=== PATIENT | female | born 1965 | race Caucasian/White ===

== ENCOUNTER → 2018-08-16 08:03 | Outpatient (CLI) | payer BC, SELFPAY ==
--- NOTE | 2018-08-16 08:09 | BI_ITS ---
MAMMOGRAPHY - BILATERAL SCREENING REASON FOR EXAM: Female, 53 years old. Routine annual screening examination. PERTINENT HISTORY: Aunt with breast cancer. TECHNIQUE: Digital bilateral breast caden (3D mammographic acquisition) in the CC and MLO projections. 2-D mediolateral oblique (MLO) and craniocaudad (CC) views of both breasts were obtained. CAD: Full Field Digital Mammography with Computer Added Detection was performed. COMPARISON: Comparison is made with prior study dated June 11, 2017 and November 01, 2015. FINDINGS: Breast Composition: The breasts are heterogeneously dense, which may obscure small masses. There are no dominant masses or suspicious calcifications. The previously seen 6 mm well-defined nodule in the retroareolar region of the left breast is not seen at this time. No other significant abnormalities are identified. BI/SCREENING MAMM (CAD), BILAT IMPRESSION: Stable bilateral screening mammogram. Yearly follow-up mammogram recommended. (A) ASSESSMENT CATEGORY: BIRADS Category 2: Benign. A letter regarding these results will be sent to the patient by the facility within 30 days. Approximately 10% of breast cancers are not detected by mammography. A normal mammogram should not delay biopsy of a clinically suspicious abnormality. [id number] Electronically Signed: Severo Pulliam MD at 9:20 EST Tel [phone], Service support ,
== END ==
PROVIDERS: Family Provider Family Medicine; PCP Family Medicine
DX: Z12.31 Encounter for screening mammogram for malignant neoplasm of breast (principal)
CPT/HCPCS: 77063; 77067

== ENCOUNTER → 2019-06-06 11:35 | Outpatient (CLI) | payer BC, SELFPAY ==
[2019-06-06 15:25] LABS: Cholesterol 188 mg/dL (200); High Density Lipoprotein 66 mg/dL; Triglycerides 70 mg/dL; Very Low Density Lipoprotein 14 mg/dL (5-40)
[2019-06-06 15:34] LABS: Vitamin D,25 Hydroxy 25.5 ng/mL (29.95-100.01)
== END ==
PROVIDERS: Family Provider Family Medicine; PCP Family Medicine; Referring Provider Family Medicine; Visit Provider Family Medicine
DX: E78.5 Hyperlipidemia, unspecified (principal); E55.9 Vitamin D deficiency, unspecified
CPT/HCPCS: 36415; 80061; 82306

== ENCOUNTER → 2019-06-20 15:49 | Outpatient (CLI) | payer BC, SELFPAY ==
[2019-06-20 17:35] LABS: Hematocrit 33.5 % (37-47); Hemoglobin 10.7 g/dL (12.0-15.0); Mean Corp Hgb Conc 31.9 g/dL (32-36); Mean Corpuscular Hgb 26.5 pg (27.0-32.0); Mean Corpuscular Volume 82.9 fL (81-99); Mean Platelet Vol. 10.1 fl (6.2-12.0); Platelet Count 285 K/mm3 (150-450); RBC Distribution Width CV 12.8 % (11.6-14.6); RBC Distribution Width SD 39.1 fl (35.1-43.9); Red Blood Count 4.04 M/mm3 (4.2-5.4); White Blood Count 5.8 K/mm3 (4.4-11.0)
[2019-06-20 18:03] LABS: ALB/GLOB Ratio 1.1 RATIO (0.9-2.4); AST(SGOT) 19 U/L (15-37); Alanine Aminotransfer ALT/SGPT 26 U/L (13-56); Albumin, Serum 3.8 g/dL (3.2-5.0); Alkaline Phosphatase 76 U/L (45-117); Anion Gap 5 (5-15); BUN 11 mg/dL (7-18); BUN/Creat Ratio 18.1 RATIO (10-20); Calcium,Total 8.5 mg/dL (8.5-10.1); Chloride 102 mmol/L (98-107); Creatinine, Serum 0.61 mg/dL (0.55-1.02); EST Glomerular Filtration Rate 109 mL/min (>60); Est Glom Filt Rate - Afr Amer 132 mL/min (>60); Globulin 3.4 g/dL (2.2-4.2); Glucose 80 mg/dL (74-106); Magnesium 1.9 mg/dL (1.6-2.6); Potassium 3.8 mmol/L (3.5-5.1); Protein, Total 7.2 g/dL (6.4-8.2); Sodium Level 134 mmol/L (136-145); Thyroid Stim Hormone (TSH) 1.53 uIU/mL (0.358-3.74)
== END ==
PROVIDERS: Family Provider Family Medicine; PCP Family Medicine; Visit Provider Family Medicine
DX: R53.83 Other fatigue (principal); Z13.29 Encounter for screening for other suspected endocrine disorder
CPT/HCPCS: 36415; 80053; 83735; 84443; 85027

== ENCOUNTER → 2019-09-12 16:23 | Outpatient (CLI) | payer BC, SELFPAY ==
--- NOTE | 2019-09-12 16:26 | BI_ITS ---
MAMMOGRAPHY - BILATERAL SCREENING REASON FOR EXAM: Female, 54 years old. Routine annual screening examination. PERTINENT HISTORY: Non-contributory. TECHNIQUE: Digital bilateral breast alia (3D mammographic acquisition) in the CC and MLO projections. 2-D mediolateral oblique (MLO) and craniocaudad (CC) views of both breasts were obtained. CAD: Full Field Digital Mammography with Computer Added Detection was performed. COMPARISON: Comparison is made with prior examination dated August 16, 2018 and June 11, 2017. FINDINGS: Breast Composition: The breasts are heterogeneously dense, which may obscure small masses. There are no dominant masses or suspicious calcifications. No other significant abnormalities are identified. There has been no significant change since the prior study. BI/SCREEN MAMM (CAD) W/ALIA BILAT IMPRESSION: Stable bilateral screening mammogram. Yearly follow-up mammogram recommended. (A) ASSESSMENT CATEGORY: BIRADS Category 1: Negative. A letter regarding these results will be sent to the patient by the facility within 30 days. Approximately 10% of breast cancers are not detected by mammography. A normal mammogram should not delay biopsy of a clinically suspicious abnormality. [id number] Electronically Signed: Severo Pulliam, at 8:37 EST , Service support ,
== END ==
PROVIDERS: Family Provider Family Medicine; PCP Family Medicine; Referring Provider Family Medicine; Visit Provider Family Medicine
DX: Z12.31 Encounter for screening mammogram for malignant neoplasm of breast (principal)
CPT/HCPCS: 77063; 77067

== ENCOUNTER → 2019-10-03 15:46 | Outpatient (CLI) | payer BC, SELFPAY ==
[2019-10-03 17:39] LABS: Hematocrit 33.8 % (37-47); Hemoglobin 10.8 g/dL (12.0-15.0); Mean Corpuscular Hgb 26.2 pg (27.0-32.0); Mean Platelet Vol. 9.8 fl (6.2-12.0); Platelet Count 271 K/mm3 (150-450); RBC Distribution Width CV 12.9 % (11.6-14.6); RBC Distribution Width SD 38.6 fl (35.1-43.9); Red Blood Count 4.12 M/mm3 (4.2-5.4); Reticulocyte Count 0.73 % (0.5-1.5); White Blood Count 6.5 K/mm3 (4.4-11.0)
[2019-10-03 17:56] LABS: Ferritin 49 ng/mL (8-252); Iron 95 ug/dL (50-170); Iron Binding Capacity,Total 321 ug/dL (250-450)
[2019-10-03 18:01] LABS: Vitamin B12 > 2000 pg/mL (211-911); Vitamin D,25 Hydroxy 36.3 ng/mL (29.95-100.01)
== END ==
PROVIDERS: PCP Family Medicine; Referring Provider Family Medicine; Visit Provider Family Medicine
DX: D64.9 Anemia, unspecified (principal); E55.9 Vitamin D deficiency, unspecified
CPT/HCPCS: 36415; 82306; 82607; 82728; 83540; 83550; 85027; 85045

== ENCOUNTER → 2020-09-20 17:20 | Outpatient (CLI) | payer BC, SELFPAY ==
--- NOTE | 2020-09-20 17:02 | BI_ITS ---
MAMMOGRAPHY - BILATERAL SCREENING REASON FOR EXAM: Female, 55 years old. Routine annual screening examination. PERTINENT HISTORY: Aunt with breast cancer. TECHNIQUE: Digital bilateral breast alia (3D mammographic acquisition) in the CC and MLO projections. 2-D mediolateral oblique (MLO) and craniocaudad (CC) views of both breasts were obtained. CAD: Full Field Digital Mammography with Computer Added Detection was performed. COMPARISON: Comparison is made with prior study dated 09/12/2019 and 08/16/2018 FINDINGS: Breast Composition: The breasts are heterogeneously dense, which may obscure small masses. There are no dominant masses or suspicious calcifications. No other significant abnormalities are identified. There has been no significant change since the prior study. BI/SCRN MAMM (CAD)W/ALIA BILAT IMPRESSION: Stable bilateral screening mammogram. Yearly follow-up mammogram recommended. (A) ASSESSMENT CATEGORY: BIRADS Category 1: Negative. A letter regarding these results will be sent to the patient by the facility within 30 days. Approximately 10% of breast cancers are not detected by mammography. A normal mammogram should not delay biopsy of a clinically suspicious abnormality. [id number] Electronically Signed: Severo Pulliam, at 8:31 EST , Service support ,
== END ==
PROVIDERS: PCP Family Medicine; Referring Provider Family Medicine; Visit Provider Family Medicine
DX: Z12.31 Encounter for screening mammogram for malignant neoplasm of breast (principal)
CPT/HCPCS: 77063; 77067

== ENCOUNTER → 2020-09-28 06:06 | Outpatient (CLI) | payer BC, SELFPAY ==
[2020-09-28 07:40] LABS: Erythrocyte Sedimentation Rate 6 mm/hr (0-30)
[2020-09-28 07:42] LABS: Absolute Lymphocyte Count 3.28 X10^3/uL (0.83-4.51); Absolute Neutrophil Count 1.9 X10^3/uL (2.0-7.7); Basophil# 0.06 X10^3/uL; Eosinophil# 0.23 X10^3/uL; Eosinophils% 3.9 % (0-5); Hematocrit 39.4 % (37-47); Hemoglobin 12.3 g/dL (12.0-15.0); Lymphocyte # 3.28 X10^3/ul (4.0); Lymphocyte % 55.6 % (19-41); Mean Corp Hgb Conc 31.2 g/dL (32-36); Mean Corpuscular Volume 83.3 fL (81-99); Mean Platelet Vol. 10.1 fl (6.2-12.0); Monocyte# 0.47 X10^3/uL; NRBC Flagged by Analyzer 0 % (0-5); Neutrophil # 1.86 X10^3/uL (2.7-7.7); Neutrophil % 31.5 % (47-70); Platelet Count 346 K/mm3 (150-450); RBC Distribution Width CV 13.2 % (11.6-14.6); RBC Distribution Width SD 40.1 fl (35.1-43.9); Red Blood Count 4.73 M/mm3 (4.2-5.4); White Blood Count 5.9 K/mm3 (4.4-11.0)
[2020-09-28 08:03] LABS: AST(SGOT) 20 U/L (15-37); Alanine Aminotransfer ALT/SGPT 30 U/L (13-56); Alkaline Phosphatase 84 U/L (45-117); Anion Gap 3 (5-15); BUN 18 mg/dL (7-18); BUN/Creat Ratio 25.9 RATIO (10-20); Calcium,Total 8.8 mg/dL (8.5-10.1); Chloride 110 mmol/L (98-107); Cholesterol 214 mg/dL (200); EST Glomerular Filtration Rate 93 mL/min (>60); Est Glom Filt Rate - Afr Amer 113 mL/min (>60); Ferritin 32 ng/mL (8-252); Globulin 3.9 g/dL (2.2-4.2); Glucose 91 mg/dL (74-106); High Density Lipoprotein 82 mg/dL; Potassium 3.7 mmol/L (3.5-5.1); Protein, Total 7.9 g/dL (6.4-8.2); Sodium Level 141 mmol/L (136-145); T4 Free Direct 0.76 ng/dL (0.76-1.46); Thyroid Stim Hormone (TSH) 1.39 uIU/mL (0.358-3.74); Triglycerides 68 mg/dL; Very Low Density Lipoprotein 14 mg/dL (5-40)
[2020-09-28 08:11] LABS: Vitamin B12 746 pg/mL (211-911); Vitamin D,25 Hydroxy 26.6 ng/mL
== END ==
PROVIDERS: PCP Family Medicine; Referring Provider Family Medicine; Visit Provider Family Medicine
DX: R53.83 Other fatigue (principal); E55.9 Vitamin D deficiency, unspecified; E78.5 Hyperlipidemia, unspecified; D64.9 Anemia, unspecified; D50.9 Iron deficiency anemia, unspecified; E53.8 Deficiency of other specified B group vitamins
CPT/HCPCS: 36415; 80053; 80061; 82306; 82533; 82607; 82728; 84439; 84443; 85025; 85652

== ENCOUNTER 2021-10-14 14:53 | Outpatient (CLI) | payer BC, SELFPAY ==
--- NOTE | 2021-10-14 14:55 | BI_ITS ---
MAMMOGRAPHY - BILATERAL SCREENING REASON FOR EXAM: Female, 56 years old. Routine annual screening examination. PERTINENT HISTORY: Aunt with breast cancer. TECHNIQUE: Digital bilateral breast alia (3D mammographic acquisition) in the CC and MLO projections. 2-D mediolateral oblique (MLO) and craniocaudad (CC) views of both breasts were obtained. CAD: Full Field Digital Mammography with Computer Added Detection was performed. COMPARISON: Comparison is made with prior study dated 09/20/2020 and 09/12/2019. FINDINGS: Breast Composition: The breasts are heterogeneously dense, which may obscure small masses. There are no dominant masses or suspicious calcifications. No other significant abnormalities are identified. There has been no significant change since the prior study. BI/SCRN MAMM (CAD)W/ALIA BILAT IMPRESSION: Stable bilateral screening mammogram. Yearly follow-up mammogram recommended. (A) ASSESSMENT CATEGORY: BIRADS Category 1: Negative. A letter regarding these results will be sent to the patient by the facility within 30 days. Approximately 10% of breast cancers are not detected by mammography. A normal mammogram should not delay biopsy of a clinically suspicious abnormality. [id number] Electronically Signed: Severo Pulliam MD at 15:37 EST ,
== END 2021-10-14 23:59 | disposition home or self-care (01) ==
LOC: OPBI 14:54
PROVIDERS: PCP Family Medicine; Referring Provider Family Medicine; Visit Provider Family Medicine
DX: Z12.31 Encounter for screening mammogram for malignant neoplasm of breast (principal)
CPT/HCPCS: 77063; 77067

== ENCOUNTER 2021-10-18 05:42 | Outpatient (CLI) | payer BC, SELFPAY ==
[2021-10-18 07:37] LABS: Hemoglobin 12.5 g/dL (12.0-15.0); Mean Corp Hgb Conc 32.1 g/dL (32-36); Mean Corpuscular Hgb 26.3 pg (27.0-32.0); Mean Corpuscular Volume 81.9 fL (81-99); Mean Platelet Vol. 9.5 fl (6.2-12.0); Platelet Count 281 K/mm3 (150-450); RBC Distribution Width CV 13.1 % (11.6-14.6); RBC Distribution Width SD 39.2 fl (35.1-43.9); Red Blood Count 4.76 M/mm3 (4.2-5.4); White Blood Count 5.9 K/mm3 (4.4-11.0)
[2021-10-18 08:15] LABS: ALB/GLOB Ratio 0.9 RATIO (0.9-2.4); AST(SGOT) 46 U/L (15-37); Alanine Aminotransfer ALT/SGPT 87 U/L (13-56); Albumin, Serum 3.6 g/dL (3.2-5.0); Alkaline Phosphatase 79 U/L (45-117); Anion Gap 4 (5-15); BUN 18 mg/dL (7-18); BUN/Creat Ratio 24.3 RATIO (10-20); Calcium,Total 8.7 mg/dL (8.5-10.1); Chloride 107 mmol/L (98-107); Cholesterol 240 mg/dL (200); Creatinine, Serum 0.74 mg/dL (0.55-1.02); EST Glomerular Filtration Rate 87 mL/min (>60); Est Glom Filt Rate - Afr Amer 105 mL/min (>60); Ferritin 118 ng/mL (8-252); Globulin 3.9 g/dL (2.2-4.2); Glucose 104 mg/dL (74-106); High Density Lipoprotein 72 mg/dL; Iron 70 ug/dL (50-170); Potassium 3.7 mmol/L (3.5-5.1); Protein, Total 7.5 g/dL (6.4-8.2); Sodium Level 140 mmol/L (136-145); Thyroid Stim Hormone (TSH) 1.44 uIU/mL (0.358-3.74); Triglycerides 56 mg/dL; Very Low Density Lipoprotein 11 mg/dL (5-40)
[2021-10-19 09:52] LABS: MG Sendout 2.2 mg/dL (1.6-2.3)
[2021-10-20 08:37] LABS: V-Zoster IgG (Immunity) 1297 index (Immune >165)
== END 2021-10-18 23:59 | disposition home or self-care (01) ==
LOC: LAB 05:44
PROVIDERS: PCP Family Medicine; Referring Provider Family Medicine; Visit Provider Family Medicine
DX: Z00.00 Encounter for general adult medical examination without abnormal findings (principal); D64.9 Anemia, unspecified; Z20.822 Contact with and (suspected) exposure to COVID-19
CPT/HCPCS: 36415; 80053; 80061; 82728; 83540; 83735; 84443; 85027; 86769; 86787

== ENCOUNTER → 2022-02-12 | Outpatient (CLI) | payer BC, SELFPAY ==
[2022-02-18 15:43] LABS: HPV HC, High Risk Negative
== END | disposition home or self-care (01) ==
LOC: LABSPEC 12:05
PROVIDERS: PCP Family Medicine; Referring Provider Nurse Practitioner Family; Visit Provider Nurse Practitioner Family
DX: Z12.4 Encounter for screening for malignant neoplasm of cervix (principal)
CPT/HCPCS: 87624; 88175; G0145

== ENCOUNTER → 2022-07-09 | Outpatient (CLI) | payer BC, SELFPAY ==
[2022-07-09 18:00] LABS: Erythrocyte Sedimentation Rate 13 mm/hr (0-30)
[2022-07-09 18:03] LABS: Absolute Lymphocyte Count 3.21 X10^3/uL (0.83-4.51); Absolute Neutrophil Count 1.8 X10^3/uL (2.0-7.7); Basophil# 0.04 X10^3/uL; Basophil% 0.7 % (0-1); Eosinophil# 0.23 X10^3/uL; Eosinophils% 4.1 % (0-5); Hematocrit 37.4 % (37-47); Hemoglobin 12.3 g/dL (12.0-15.0); Lymphocyte # 3.21 X10^3/ul (0.83-4.51); Lymphocyte % 56.7 % (19-41); Mean Corp Hgb Conc 32.9 g/dL (32-36); Mean Corpuscular Hgb 27.2 pg (27.0-32.0); Mean Corpuscular Volume 82.6 fL (81-99); Mean Platelet Vol. 9.8 fl (6.2-12.0); Monocyte# 0.34 X10^3/uL; NRBC Flagged by Analyzer 0 % (0-5); Neutrophil # 1.83 X10^3/uL (2.7-7.7); Neutrophil % 32.3 % (47-70); Platelet Count 309 K/mm3 (150-450); RBC Distribution Width CV 13.9 % (11.6-14.6); Red Blood Count 4.53 M/mm3 (4.2-5.4); White Blood Count 5.7 K/mm3 (4.4-11.0)
[2022-07-09 18:55] LABS: Vitamin D,25 Hydroxy 54.5 ng/mL
[2022-07-09 19:07] LABS: ALB/GLOB Ratio 1.1 RATIO (0.9-2.4); AST(SGOT) 26 U/L (15-37); Alanine Aminotransfer ALT/SGPT 45 U/L (13-56); Alkaline Phosphatase 92 U/L (45-117); Anion Gap 6 (5-15); BUN 12 mg/dL (7-18); BUN/Creat Ratio 14.9 RATIO (10-20); CRP < 2.90 mg/L (0.0-3.0); Calcium,Total 9.2 mg/dL (8.5-10.1); Chloride 103 mmol/L (98-107); Creatinine, Serum 0.81 mg/dL (0.55-1.02); EST Glomerular Filtration Rate 78 mL/min (>60); Est Glom Filt Rate - Afr Amer 94 mL/min (>60); Ferritin 159 ng/mL (8-252); Globulin 3.7 g/dL (2.2-4.2); Glucose 75 mg/dL (74-106); Iron 67 ug/dL (50-170); Iron Binding Capacity,Total 321 ug/dL (250-450); Magnesium 2.3 mg/dL (1.6-2.6); PERCENT IRON SATURATION 20.9 % (15.0-55.0); Phosphorus 3.7 mg/dL (2.5-4.9); Potassium 3.6 mmol/L (3.5-5.1); Protein, Total 7.7 g/dL (6.4-8.2); Rheumatoid Factor < 10.0 IU/mL (<15); Sodium Level 135 mmol/L (136-145); Thyroid Stim Hormone (TSH) 1.69 uIU/mL (0.358-3.74)
[2022-07-10 08:55] LABS: PTHIN 28.3 pg/mL (18.4-80.1)
[2022-07-12 18:49] LABS: ANTINUCLEAR ANTIBODIES DIRECT Negative (Negative)
== END | disposition home or self-care (01) ==
LOC: MFPLAB 16:33
PROVIDERS: PCP Family Medicine; Referring Provider Family Medicine; Visit Provider Family Medicine
DX: M11.20 Other chondrocalcinosis, unspecified site (principal)
CPT/HCPCS: 36415; 80053; 82306; 82728; 83540; 83550; 83735; 83970; 84100; 84443; 84550; 85025; 85652; 86038; 86140; 86431

== ENCOUNTER → 2022-08-14 | Outpatient (CLI) | payer BC, SELFPAY ==
--- NOTE | 2022-08-14 16:00 | BD_ITS ---
STUDY: DUAL ENERGY X-RAY ABSORPTIOMETRY / DXA REASON FOR EXAM: Female, 57 years old. 627.8Menopausal postmenopausalBONE DENSITY REASON FOR EXAM TECHNIQUE: Bone Mineral Density (BMD) measurements of lumbar spine and bilateral hips were obtained. COMPARISON: None. FINDINGS: Lumbar Spine (L1-L4): g/cm2 (0.780) / T-score (-2.4) / Z-score (-1.3) Findings are suggestive of osteopenia with a high fracture risk. Left Femur Total: g/cm2 (0.703) / T-score (-2.0) / Z-score (-1.2) Left Femoral Neck: g/cm2 (0.641) / T-score (-1.9) / Z-score (-0.8) Right Femur Total: g/cm2 (0.746) / T-score (-1.6) / Z-score (-0.9) Right Femoral Neck: g/cm2 (0.668) / T-score (-1.6) / Z-score (-0.5) BD/Dexa Bone Density Study IMPRESSION: The patient is considered osteopenic as outlined below according to World Arnav Organization (WHO) criteria with a high fracture risk. Reference Information: The T-score is the number of standard deviations above or below the standard which is normal for young adults at their peak bone mineral density. The World Health Organization (WHO) interprets the T-scores as follows: Above -1 Normal bone density Between -1 and -2.5 Osteopenia Equal to / or below -2.5 Osteoporosis As a practical clinical guideline, osteopenia may be graded as follows: Mild -1 through -1.5 Moderate -1.6 through -2.0 Severe -2.1 through -2.4 The Z-score is the number of standard deviations above or below age-matched controls. A Z-score of less than -1.5 would be considered abnormal. References: 1. NIH Osteoporosis and Related Bone Diseases www osteo.org 2. International Society for Clinical Densitometry www iscd.org 3. National Osteoporosis Foundation www nof.org Electronically Signed: Severo Pulliam MD at 8:07 EST ,
== END | disposition home or self-care (01) ==
LOC: OPBD 15:45
PROVIDERS: PCP Family Medicine; Visit Provider Family Medicine
DX: E55.9 Vitamin D deficiency, unspecified (principal)
CPT/HCPCS: 77080

== ENCOUNTER → 2022-10-22 | Outpatient (CLI) | payer BC, SELFPAY ==
--- NOTE | 2022-10-22 15:12 | BI_ITS ---
MAMMOGRAPHY - BILATERAL SCREENING REASON FOR EXAM: Female, 57 years old. Routine annual screening examination. PERTINENT HISTORY: Aunt with breast cancer. TECHNIQUE: Digital bilateral breast alia (3D mammographic acquisition) in the CC and MLO projections. 2-D mediolateral oblique (MLO) and craniocaudad (CC) views of both breasts were obtained. CAD: Full Field Digital Mammography with Computer Added Detection was performed. COMPARISON: Comparison is made with prior study dated 10/14/2021 and 09/20/2020. FINDINGS: Breast Composition: The breasts are heterogeneously dense, which may obscure small masses. There are no dominant masses or suspicious calcifications. No other significant abnormalities are identified. There has been no significant change since the prior study. BI/SCRN MAMM (CAD)W/ALIA BILAT IMPRESSION: Stable bilateral screening mammogram. Yearly follow-up mammogram recommended. (A) ASSESSMENT CATEGORY: BIRADS Category 1: Negative. A letter regarding these results will be sent to the patient by the facility within 30 days. Approximately 10% of breast cancers are not detected by mammography. A normal mammogram should not delay biopsy of a clinically suspicious abnormality. [id number] Electronically Signed: Severo Pulliam MD at 8:01 EST ,
== END | disposition home or self-care (01) ==
LOC: OPBI 15:10
PROVIDERS: PCP Family Medicine; Visit Provider Family Medicine
DX: Z12.31 Encounter for screening mammogram for malignant neoplasm of breast (principal)
CPT/HCPCS: 77063; 77067

== ENCOUNTER → 2023-05-01 | Outpatient (CLI) | payer BC, SELFPAY ==
[2023-05-01 12:25] LABS: Bacteria 0 SEEN /hpf (None Seen); Mucous, Urine 0 SEEN /hpf (<or=2+); Red Blood Cells-Urine 0 SEEN /hpf (0-5); Squamous Epithelial Cells - UA 0 SEEN /hpf (5-10); White Blood Cells 0 SEEN /hpf (0-5)
[2023-05-01 15:20] LABS: Color, Urine Yellow (Yellow); Glucose, Dipstick Normal (Normal); Ketone-Dipstick 5 mg/dl (Negative); Leukocyte Esterase-Dipstick Negative /ul (Negative); Nitrite-Dipstick Negative (Negative); Occult Blood-Urine 10 /ul (Negative); Protein-Dipstick Negative (Negative); Urine Bilirubin Dipstick Negative (Negative); Urine Clarity Clear (Clear); Urine Urobilinogen Normal (Normal)
[2023-05-01 17:07] LABS: Hematocrit 40.9 % (37-47); Hemoglobin 13.1 g/dL (12.0-15.0); Mean Corpuscular Hgb 26.5 pg (27.0-32.0); Mean Corpuscular Volume 82.6 fL (81-99); Mean Platelet Vol. 9.3 fl (6.2-12.0); Platelet Count 285 K/mm3 (150-450); RBC Distribution Width CV 13.2 % (11.6-14.6); RBC Distribution Width SD 39.4 fl (35.1-43.9); Red Blood Count 4.95 M/mm3 (4.2-5.4); White Blood Count 8.8 K/mm3 (4.4-11.0)
[2023-05-01 17:40] LABS: Vitamin D,25 Hydroxy 61.3 ng/mL
[2023-05-01 17:47] LABS: ALB/GLOB Ratio 1.1 RATIO (0.9-2.4); AST(SGOT) 21 U/L (15-37); Alanine Aminotransfer ALT/SGPT 28 U/L (13-56); Albumin, Serum 4.1 g/dL (3.2-5.0); Alkaline Phosphatase 76 U/L (45-117); Anion Gap 7 (5-15); BUN 12 mg/dL (7-18); BUN/Creat Ratio 15.1 RATIO (10-20); CRP, High Sensitivity Cardiac 0.46 mg/L; Calcium,Total 9.3 mg/dL (8.5-10.1); Chloride 102 mmol/L (98-107); EST Glomerular Filtration Rate 79 mL/min (>60); Est Glom Filt Rate - Afr Amer 96 mL/min (>60); Globulin 3.9 g/dL (2.2-4.2); Glucose 81 mg/dL (74-106); Potassium 3.4 mmol/L (3.5-5.1); Sodium Level 135 mmol/L (136-145); Thyroid Stim Hormone (TSH) 0.85 uIU/mL (0.358-3.74)
[2023-05-04 12:08] LABS: CHOLESTEROL TOTAL 265 mg/dL (100-199); HDL-C 75 mg/dL (>39); HDL-P TOTAL 37.9 umol/L (>=30.5); INSULIN RESISTANCE SCORE 26 (<=45); LDL SIZE 21.6 nm (>20.5); LDL-C (NIH CALC) 177 mg/dL (0-99); LDL-P 1666 nmol/L (<1000); SMALL LDL-P 276 nmol/L (<=527); TRIGLYCERIDES 77 mg/dL (0-149)
== END | disposition home or self-care (01) ==
PROVIDERS: PCP Family Medicine; Visit Provider Family Medicine
DX: Z00.00 Encounter for general adult medical examination without abnormal findings (principal); Z13.220 Encounter for screening for lipoid disorders; R53.83 Other fatigue; E78.5 Hyperlipidemia, unspecified; E55.9 Vitamin D deficiency, unspecified
CPT/HCPCS: 36415; 80053; 80061; 81001; 82306; 83704; 84443; 85027; 86141

== ENCOUNTER → 2023-08-21 | Outpatient (CLI) | payer BC, SELFPAY | END | disposition home or self-care (01) | LOC: SL 10:44 | PROVIDERS: PCP Family Medicine; Visit Provider Family Medicine | DX: Z00.00 Encounter for general adult medical examination without abnormal findings (principal) ==

== ENCOUNTER → 2023-08-25 | Outpatient (CLI) | payer MEDICAID, SELFPAY | END | disposition home or self-care (01) | LOC: SL 14:04 | PROVIDERS: PCP Family Medicine; Referring Provider Family Medicine; Visit Provider Family Medicine | DX: Z00.00 Encounter for general adult medical examination without abnormal findings (principal) ==

== ENCOUNTER → 2024-05-11 | Outpatient (CLI) | payer MEDICAID, SELFPAY ==
[2024-05-11 12:53] LABS: Cholesterol 254 mg/dL (200); High Density Lipoprotein 52 mg/dL; Triglycerides 182 mg/dL; Very Low Density Lipoprotein 36 mg/dL (5-40)
== END | disposition home or self-care (01) ==
PROVIDERS: PCP Family Medicine; Referring Provider Family Medicine; Visit Provider Family Medicine
DX: R53.83 Other fatigue (principal); E78.5 Hyperlipidemia, unspecified
CPT/HCPCS: 36415; 80061; 84443

== ENCOUNTER → 2024-07-15 | Outpatient (CLI) | payer MEDICAID, SELFPAY | END | disposition home or self-care (01) | LOC: OPBI 08:48 | PROVIDERS: PCP Family Medicine; Referring Provider Family Medicine; Visit Provider Family Medicine | DX: Z12.31 Encounter for screening mammogram for malignant neoplasm of breast (principal); Z80.3 Family history of malignant neoplasm of breast | CPT/HCPCS: 77063; 77067 ==

== ENCOUNTER → 2024-07-26 | Outpatient (CLI) | payer MEDICAID, SELFPAY ==
[2024-08-08 09:07] LABS: HPV APTIMA, High Risk Negative (Negative)
[2024-08-08 10:49] LABS: HPV Reflexed? YES, CHARGE PATIENT
== END | disposition home or self-care (01) ==
PROVIDERS: PCP Family Medicine; Referring Provider Nurse Practitioner Family; Visit Provider Nurse Practitioner Family
DX: Z01.419 Encounter for gynecological examination (general) (routine) without abnormal findings (principal)
CPT/HCPCS: 87624; 88175; G0145

== ENCOUNTER → 2024-08-24 | Outpatient (CLI) | payer MEDICAID, SELFPAY ==
[2024-09-02 14:07] LABS: HPV APTIMA, High Risk Negative (Negative)
[2024-09-02 14:41] LABS: HPV Reflexed? YES, CHARGE PATIENT
== END | disposition home or self-care (01) ==
LOC: LABSPEC 15:58
PROVIDERS: PCP Family Medicine; Visit Provider Nurse Practitioner Family
DX: Z12.4 Encounter for screening for malignant neoplasm of cervix (principal)
CPT/HCPCS: 87624; 88175; G0145

== ENCOUNTER → 2025-05-09 | Outpatient (CLI) | payer MEDICAID, SELFPAY | END | disposition home or self-care (01) | LOC: SL 08:05 | PROVIDERS: PCP Family Medicine; Visit Provider Family Medicine | DX: R52 Pain, unspecified (principal) ==

== ENCOUNTER → 2025-06-01 | Outpatient (CLI) | payer MEDICAID, SELFPAY ==
[2025-06-01 15:15] LABS: Hematocrit 42.4 % (37-47); Hemoglobin 13.9 g/dL (12.0-15.0); Immature Granulocytes Count 0.010 X10^3/uL (0.0-0.0); Mean Corp Hgb Conc 32.8 g/dL (32-36); Mean Corpuscular Volume 81.1 fL (81-99); Mean Platelet Vol. 9.8 fl (6.2-12.0); NRBC Flagged by Analyzer 0 % (0-5); Platelet Count 405 K/mm3 (150-450); RBC Distribution Width CV 13.7 % (11.6-14.6); RBC Distribution Width SD 40.3 fl (35.1-43.9); Red Blood Count 5.23 M/mm3 (4.2-5.4); White Blood Count 6.7 K/mm3 (4.4-11.0)
[2025-06-01 15:48] LABS: CORTISOL PM 13.10 ug/dL (2.68-10.50); Cholesterol 283 mg/dL (<=200); Ferritin 220 ng/mL (22-378); Low Density Lipoprotein Calc. 228 mg/dL; Triglycerides 33 mg/dL; Very Low Density Lipoprotein 7 mg/dL (5-40); Vitamin B12 1559 pg/mL (180-914); Vitamin D,25 Hydroxy 48.5 ng/mL (30-100); cholesterol:hdl ratio screen 5.87
[2025-06-01 16:00] LABS: AST(SGOT) 28 U/L (<=31); Alanine Aminotransfer ALT/SGPT 40 U/L (<=34); Alkaline Phosphatase 89 U/L (35-104); BUN 14 mg/dL (4-19); BUN/Creat Ratio 19.6 RATIO (10-20); Calcium,Total 7.3 mg/dL (7.6-11.0); Chloride 103 mmol/L (98-108); Potassium 3.8 mmol/L (3.3-5.1)
[2025-06-01 16:06] LABS: Albumin, Serum 4.8 g/dL (3.5-5.0); Anion Gap 16 (5-15); Carbon Dioxide 21.6 mmol/L (21.0-32.0); Globulin 3.4 g/dL (2.2-4.2); Glucose 94 mg/dL (70-99); Iron 105 ug/dL (50-170); Iron Binding Capacity,Total 331 ug/dL (250-450); Iron Binding Capacity,Unsat 226 ug/dL (228-428)
[2025-06-03 09:08] LABS: CRP, High Sensitivity 4.18 mg/L (0.00-3.00); HOMOCYSTEINE 6.5 umol/L (0.0-14.5)
== END | disposition home or self-care (01) ==
LOC: MFPLAB 12:00
PROVIDERS: PCP Family Medicine; Visit Provider Family Medicine
DX: R53.83 Other fatigue (principal); E78.5 Hyperlipidemia, unspecified; E55.9 Vitamin D deficiency, unspecified; E53.8 Deficiency of other specified B group vitamins
CPT/HCPCS: 36415; 80053; 80061; 82306; 82533; 82607; 82728; 83090; 83540; 83550; 84443; 85025; 85652; 86141

== ENCOUNTER → 2025-06-15 | Outpatient (CLI) | payer MEDICAID, SELFPAY ==
[2025-06-15 08:53] LABS: Ionized Calcium Order ORDER TUBE
[2025-06-15 09:46] LABS: PTHIN 40 pg/mL (11-61)
== END | disposition home or self-care (01) ==
LOC: LAB 07:48
PROVIDERS: PCP Family Medicine; Referring Provider Family Medicine; Visit Provider Family Medicine
DX: E83.51 Hypocalcemia (principal)
CPT/HCPCS: 36415; 82330; 83970

== ENCOUNTER → 2025-06-16 | Outpatient (CLI) | payer MEDICAID, SELFPAY ==
[2025-06-20 23:07] LABS: Cortisol, Free 24Ur 13 ug/24 hr (6-42)
== END | disposition home or self-care (01) ==
LOC: LABSPEC 10:18
PROVIDERS: PCP Family Medicine; Referring Provider Family Medicine; Visit Provider Family Medicine
DX: R79.89 Other specified abnormal findings of blood chemistry (principal)
CPT/HCPCS: 81050; 82530

== ENCOUNTER 2025-06-20 09:00 | Outpatient (RCR) | payer MEDICAID, SELFPAY ==
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
--- NOTE | 2025-04-18 12:03 | HP.PTREVAL ---
Re-Evaluation Intro: José Miguel Chau, ELECTRICAL CONTROL ASSEMBLER-C, It has been my pleasure to treat SOURAV MORELOS over the last 6 visits for ACUTE NECK PAIN. Please see the progress note below for an update on the physical therapy plan of care! Subjective Subjective: PATIENT REPORTS HER FLARE UP IS GETTING BETTER AND SHE ISN'T GETTING TEMPLETON'S ANYMORE. IT IS DEFINATELY IMPROVING AND GOING THE RIGHT DIRECTION. SHE STATES HER NECK IS STILL MORE TIGHT AND SORE BEFORE THE EPISODE THAT FLARED HER UP WITH THE CHIROPRACTOR - I'M NOT BACK TO WHERE I WAS. REPORTS HAVING E-STIM X 3 VISITS WITH CHIROPRACTOR SINCE STARTING PT WITH BENEFIT. PATIENT REPORTS HER HEP IS GOING GOOD AND IT IS NOT BOTHERING HER R HAND AT ALL - WEARS BRACE. PATIENT IS EXPRESSING DESIRE TO CONTINUE PT. Objective Objective/Function: PATIENT WAS SEEN TODAY FOR RE-ASSESSMENT OF PROGRESS TOWARD THE SET PT GOALS AND THE NEED FOR FURTHER PHYSICAL THERAPY VS READINESS FOR DISCHARGE. THIS PATIENT IS MAKING PROGRESS IN TERMS OF DECREASED C/O NECK PAIN, INCREASED NECK AND UE ROM AND INCREASED UE STRENGTH MAKING HER A GOOD CANDIDATE TO CONTINUE PT. UPON EXAM TODAY: Sensory deficit: LAURI UE LIGHT TOUCH SENSATION IS GROSSLY INTACT AND SYMMETRICAL WITH GROSS TESTING (R WRIST/HAND NT). ROM deficit: R ACTIVE SHLD ELEVATION 165 DEG, L 152 DEG WITH PATIENT C/O SHLD AND NECK INCREASED PAIN WITH TESTING BUT NW A RESULT. Motor deficit: GROSS MMT TESTING RESULTS: R SHLD 4/5, ELBOW 4/5. OTHERWISE R UE NT (SURGERY PENDING). L SHLD 4/5, ELBOW 4/5, L LAYOUT OPERATOR 46 LBS. Cervical Mvmt Loss: Flex: MIN Pro: NIL Ext: MOD Ret: BRANDAN RSB: MOD LSB: MOD R Rot: MOD L Rot: MOD PATIENT C/O R NECK/CHEST REGION PAIN WITH CERVICAL ROM TESTING ALL PLANES AT THE END OF THE AVAILABLE ROM BUT NW A RESULT. 0/10 PAIN IMMEDIATELY AT REST AFTER TESTING. Postural strength: FAIR Palpation: PATIENT WITH INCREASED MUSCLE TONE AND TENDERNESS LAURI UT'S, THORACIC AND CERVICAL PARASPINALS. OTHER: PATIENT MVMTS ARE CONSISTENTLY GUARDED WITH TESTING AGAIN TODAY. Plan Plan Plan: Cont PT 2x's a wk x 8 to 12 visits. Add lauri cervical, scapular, pec and shld region STM as needed. Also add e-stim as needed. Scapular Strengthening and B Pec/UT/Levator/Scalene Stretching to help reduce stress on Cervical Spine with Daily Activities. US at 1.5 W/CM2 100% to B Neck Musculature in Sitting. Moist Heat to Neck as needed. Instruction in Proper Posture Control, Ergonomics with ADL's and Appropriate Activity Modifications. Lauri UE ROM/stretching and strengthening avoiding R UE upcoming surgical area. HEP Instructions. Consider Aquatic Therapy. Balance/Gait/Functional tests Balance/Special Test Scores Oswestry Neck Score: 19 Goals Goals Goal 1:: DECREASE C/O NECK AND UE SX'S BY AT LEAST 50% TO EASE ADL'S. Goal Time Frame: 6-8 Weeks Goal Progress: Progressing Goal 2:: IMPROVE PERSONAL CARE, LIFTING, READING, WORK, DRIVING, HOUSEWORK AND RECREATIONAL FUNCTION WITH AT LEAST 10 POINT INCREASE IN NECK OSWESTRY SCORE Goal Time Frame: 6-8 Weeks Goal Progress: Progressing Goal 3:: INSTRUCT IN PROPHYLAXIS Goal Time Frame: 6-8 Weeks Goal Progress: Progressing Anticipated Interventions Anticipated Interventions Patient/Client Instruction: Educate patient on: Condition, Plan of Care and Risk Factors For the Purpose of:: To improve self management Therapeutic Exercise to Include: Strength training, Body mechanics, Postural training, Flexibilty training, Neuromotor development, In an aquatic setting and Scapular Strength/Stabilization For the Purpose of:: To decrease pain, To increase ROM, To improve nutrient delivery to tissue, To improve muscle performance and motor function, To increase tolerance to activity/condition/position, To improve ability of physical actions for home/community/work/leisure, To increase flexibility/ROM and To improve self management Manual Therapy Techniques to Include: Soft tissue mobilization For the Purpose of:: To decrease pain, To improve nutrient delivery to tissue, To decrease soft tissue restriction and To increase flexibility/ROM Cryotherapy (ice pack, ice massage): Yes Thermo therapy (hot pack): Yes Ultrasound (thermal/non thermal): Yes For the Purpose of:: To decrease pain, To decrease swelling/inflammation and To improve nutrient delivery to tissue Re-Evaluation Ending Re-evaluation ending: Please do not hesitate to contact me at [phone] by phone or if you have questions or concerns regarding this new plan of care! Sincerely, Rosy Lim, PT, Cert MDT
--- NOTE | 2025-06-20 09:53 | HP.PTDCSUM ---
Discharge Summary D/C summary: It has been my pleasure to treat SOURAV MORELOS referred by PAUL Rollins, with the diagnosis of ACUTE NECK PAIN for a total of 19 visit(s). Discharge Date: 06/20/25 Please see the following information for a summary of their discharge status. Subjective Subjective: PATIENT REPORTS SHE HAS DONE HER POOL PROGRAM A FEW TIMES ON HER OWN AT [facility] NOW AND SHE FEELS CONFIDENT WITH IT. PATIENT REPORTS SHE HAS SHE IS STILL GETTING MORE NECK MOVEMENT AND SHE CAN BRUSH HER HAIR EASIER NOW WITH HER R HAND. EVEN BENDING DOWN TO PUT ON HER SHOES IS GETTING EASIER. SHE STATES SHE NOTICES SHE CAN TURN HER HEAD TO SEE WHEN DRIVING NOW AND SHE DOESN'T HAVE TO TURN WITH HER WHOLE TORSO NOW - SO IT'S LESS AEROBICS IN THE DRIVERS SEAT. SHE REPORTS HER LAST VISIT WITH THE CHIROPRACTOR WAS 05/04/25 AND THAT WENT OK. Pain Neck: Pain Intensity (Out of 10): 4 R SH: Pain Intensity (Out of 10): 4 Overall Improvement % Improvement: 75 Objective Objective/Function: PATIENT WAS SEEN TODAY FOR RE-ASSESSMENT OF PROGRESS TOWARD THE SET PT GOALS AND THE NEED FOR FURTHER PHYSICAL THERAPY VS READINESS FOR DISCHARGE. THIS PATIENT HAS CONTINUED TO MAKE SLOW PROGRESS WITH PT AND IS NOW INDEP WITH A POOL PROGRAM AND HOME EX'S. SHE IS APPROPRIATE FOR AND AGREEABLE TO DISCHARGE. PHYSICIAN FOLLOW UP RECOMMENDED AND PATIENT AGREEABLE WITH APPOINTMENT PENDING TODAY. SHE DOES HAVE SOME INCREASED STIFFNESS WITH LARUI CERVICAL SB TESTING TODAY BUT OTHERWISE ALL TESTING IS THE SAME OR BETTER. UPON EXAM TODAY: Sensory deficit: LAURI UE LIGHT TOUCH SENSATION IS GROSSLY INTACT AND SYMMETRICAL WITH GROSS TESTING (R WRIST/HAND NT). ROM deficit: R ACTIVE SHLD ELEVATION 169 DEG, L 161 DEG WITH PATIENT C/O SHLD AND NECK INCREASED PAIN WITH TESTING BUT NW A RESULT. Motor deficit: GROSS MMT TESTING RESULTS: R SHLD 4/5, ELBOW 4/5. OTHERWISE R UE NT (SURGERY TFC AND ULNAR BONE SHORTENING PENDING). L SHLD 4/5, ELBOW 5/5, L ADVERTISING ASSOCIATE 49 LBS. Cervical Mvmt Loss: Flex: NIL Pro: NIL Ext: MIN Ret: MOD RSB: MOD TO BRANDAN LSB: MOD TO BRANDAN R Rot: MOD L Rot: MOD PATIENT C/O R NECK REGION PAIN WITH CERVICAL ROM TESTING ALL PLANES AT THE END OF THE AVAILABLE ROM BUT NW A RESULT. Postural strength: FAIR Palpation: PATIENT WITH INCREASED MUSCLE TONE AND TENDERNESS LAURI UT'S, THORACIC AND CERVICAL PARASPINALS. OTHER: PATIENT MVMTS ARE CONSISTENTLY GUARDED WITH TESTING AGAIN TODAY. Goals Goal 1:: DECREASE C/O NECK AND UE SX'S BY AT LEAST 50% TO EASE ADL'S. Goal Progress: Goal Met Goal 2:: IMPROVE PERSONAL CARE, LIFTING, READING, WORK, DRIVING, HOUSEWORK AND RECREATIONAL FUNCTION WITH AT LEAST 10 POINT INCREASE IN NECK OSWESTRY SCORE Goal Progress: Goal Met Goal 3:: INSTRUCT IN PROPHYLAXIS Goal Progress: Goal Met Plan Plan: D/C D/C Information d/c sentence: If there are questions or concerns regarding this patient's physical therapy, please feel free to call me at [phone]. Thank you for the referral of this patient. Sincerely, Rosy Lim, PT, Cert MDT Balance/Gait/Functional tests Balance/Special Test Scores Oswestry Neck Score: 17 Improvement % Improvement: 75
== END 2025-06-20 10:28 | disposition home or self-care (01) ==
LOC: PT 09:00
PROVIDERS: PCP Family Medicine
DX: M54.2 Cervicalgia (principal)
CPT/HCPCS: 97014; 97035; 97110; 97113; 97140; 97162; 97530; G0283